=== PATIENT | female | born 1950 | race Caucasian/White ===

== ENCOUNTER → 2020-06-27 | Outpatient (CLI) | payer OTHER | END | disposition home or self-care (01) | LOC: CT 08:30 | PROVIDERS: ATTEND Urology | DX: R32 Unspecified urinary incontinence (principal); I51.7 Cardiomegaly; M47.819 Spondylosis without myelopathy or radiculopathy, site unspecified; Z90.710 Acquired absence of both cervix and uterus; Z96.0 Presence of urogenital implants ==